=== PATIENT | male | born 1970 | race Caucasian/White ===

== ENCOUNTER 2018-08-22 10:35 | Emergency (ER) | payer OTHER ==
[~2018-08-22] VITALS: Ht 170.2 cm; Wt 88.5 kg
== END 2018-08-22 13:44 | disposition home or self-care (01) ==
LOC: ER 10:35
DX: M75.21 Bicipital tendinitis, right shoulder (principal)

== ENCOUNTER → 2018-10-31 | Outpatient (CLI) | payer OTHER | END | disposition home or self-care (01) | LOC: SONOGRAMA 12:48 → MAMO-SONO 13:45 | DX: M25.511 Pain in right shoulder (principal); M75.101 Unspecified rotator cuff tear or rupture of right shoulder, not specified as traumatic ==

== ENCOUNTER 2018-11-22 10:04 | Outpatient (CLI) | payer OTHER | END 2018-11-22 10:18 | disposition home or self-care (01) | LOC: MRI 10:04 | DX: M25.511 Pain in right shoulder (principal) | CPT/HCPCS: 73221 ==

== ENCOUNTER 2018-12-06 15:30 | Outpatient (CLI) | payer OTHER | END 2018-12-06 15:35 | disposition home or self-care (01) | LOC: RAD 15:30 | DX: R07.89 Other chest pain (principal) ==

== ENCOUNTER 2018-12-13 15:35 | Outpatient (CLI) | payer OTHER | END 2018-12-13 15:41 | disposition home or self-care (01) | LOC: EKG 15:35 | DX: I10 Essential (primary) hypertension (principal) ==

== ENCOUNTER 2019-06-21 13:37 | Emergency (ER) | payer OTHER ==
[~2019-06-21] VITALS: Ht 170.2 cm; Wt 92.5 kg
== END 2019-06-21 18:43 | disposition home or self-care (01) ==
LOC: ER 13:37
DX: K52.9 Noninfective gastroenteritis and colitis, unspecified (principal)

== ENCOUNTER 2019-09-25 14:55 | Outpatient (CLI) | payer OTHER | END 2019-09-25 15:00 | disposition home or self-care (01) | LOC: MRI 14:55 | DX: M25.512 Pain in left shoulder (principal); M75.122 Complete rotator cuff tear or rupture of left shoulder, not specified as traumatic | CPT/HCPCS: 73221 ==

== ENCOUNTER 2023-09-06 10:45 | Outpatient (CLI) | payer OTHER | END 2023-09-06 11:01 | disposition home or self-care (01) | LOC: TOM 10:45 | PROVIDERS: ATTEND Internal Medicine | DX: S09.90XA Unspecified injury of head, initial encounter (principal); R42 Dizziness and giddiness ==

== ENCOUNTER 2024-12-04 09:25 | Outpatient (CLI) | payer OTHER | END 2024-12-05 08:58 | disposition home or self-care (01) | LOC: NUCLEAR 09:25 | PROVIDERS: ATTEND Internal Medicine | DX: G45.9 Transient cerebral ischemic attack, unspecified (principal) ==

== ENCOUNTER 2024-12-05 10:45 | Outpatient (CLI) | payer OTHER | END 2024-12-05 10:54 | disposition home or self-care (01) | LOC: MRI 10:45 | PROVIDERS: ATTEND Internal Medicine | DX: G45.9 Transient cerebral ischemic attack, unspecified (principal) | CPT/HCPCS: 70552 ==

== ENCOUNTER → 2024-12-18 07:28 | Outpatient (CLI) | payer OTHER | END | disposition home or self-care (01) | LOC: NUCLEAR 07:00 | PROVIDERS: ATTEND Internal Medicine | DX: I20.9 Angina pectoris, unspecified (principal) ==